=== PATIENT | female | born 1990 | race African-American/Black ===

== ENCOUNTER 2020-03-07 21:48 | Emergency (ER) | payer SELFPAY ==
[~2020-03-07] VITALS: Ht 175.3 cm; Wt 66.0 kg
[2020-03-07 22:03] VITALS: BP 143/85
[2020-03-07] MEDS ORDERED: KETOROLAC 30MG/ML VIAL IM ONE (23:30)
== END 2020-03-08 00:12 | disposition home or self-care (01) ==
LOC: ER 21:48
DX: N94.6 Dysmenorrhea, unspecified (principal)
CPT/HCPCS: 96372; 99283; J1885